=== PATIENT | female | born 1990 | race Caucasian/White ===

== ENCOUNTER 2018-11-06 11:25 | Emergency (ER) | payer SELFPAY ==
[2018-11-06 11:32] VITALS: BP 116/72; PULSE 118; TEMP 99.2; BMI 31.1
[2018-11-06] MEDS ORDERED: ACETAMINOPHEN 325 MG TABLET (FP) PO ONE (11:48)
[2018-11-06] MEDS ORDERED: ACETAMINOPHEN 325 MG TABLET (FP) ONE (11:52)
--- NOTE | 2018-11-06 11:56 | PDOC ---
History of Present Illness - General Chief Complaint: Cold Symptoms Stated Complaint: FLU SYMPTOMS Time Seen by Provider: 11/06/18 11:32 History Source: Patient Exam Limitations: No Limitations Past History - Past Medical History Allergies/Adverse Reactions: Allergies Allergy/AdvReac Type Severity Reaction Status Date / Time codeine Allergy Severe Rash Verified 11/06/18 11:38 Home Medications: Ambulatory Orders Cephalexin Monohydrate [Keflex -] 500 mg PO BID #14 capsule 11/06/18 Asthma: Yes Cancer: No Cardiac Disorders: No CVA: No COPD: No CHF: No Diabetes: No HTN: No Seizures: No Thyroid Disease: No - Reproductive History (#): 3 Para: 1 Spontaneous : 1 - Immunization History Immunization Up to Date: Yes - Suicide/Smoking/Psychosocial Hx Smoking History: Never smoked Have you smoked in the past 12 months: No Hx Alcohol Use: No Drug/Substance Use Hx: No Substance Use Type: None Hx Substance Use Treatment: No *Physical Exam - Vital Signs Last Vital Signs Temp Pulse Resp BP Pulse Ox 99.2 F 118 H 16 116/72 98 11/06/18 11:29 11/06/18 11:29 11/06/18 11:29 11/06/18 11:29 11/06/18 11:29 - Physical Exam General Appearance: No: Apparent Distress HEENT: negative: Muffled/Hoarse voice, Pharyngeal Erythema, Tonsillar Exudate, Tonsillar Erythema, Nasal Congestion, Rhinorrhea, Sinus Tenderness Respiratory/Chest: positive: Lungs Clear, Normal Breath Sounds. negative: Respiratory Distress Cardiovascular: positive: Regular Rhythm Gastrointestinal/Abdominal: positive: Normal Bowel Sounds, Soft. negative: Tender, Distended, Guarding, Rebound Musculoskeletal: negative: CVA Tenderness Integumentary: positive: Normal Color Neurologic: positive: Alert, Normal Mood/Affect Moderate Sedation - Procedure Monitoring Vital Signs: Procedure Monitoring Vital Signs Temperature 99.2 F 11/06/18 11:29 Pulse Rate 118 H 11/06/18 11:29 Respiratory Rate 16 11/06/18 11:29 Blood Pressure 116/72 11/06/18 11:29 O2 Sat by Pulse Oximetry (%) 98 11/06/18 11:29 Medical Decision Making - Medical Decision Making 28 y/o F hx of asthma presents with fever, chills, bodyaches, emesis x 4 days. Mentions one of her coworkers recently had flu around 2 weeks ago. Also mentions noting some hematuria around 4 days ago along with increased urinary frequency, urgency. Mentions having this last year as well and was found to have UTI. Denies sob, cp, abd pain, diarrhea, dysuria, vaginal bleeding, unusual vaginal discharge. Patient has not taken any antipyretics today. Likely viral syndrome/flu Plan: Flu swab, Tylenol Hematuria - consider UTI; unlikely kidney stones given no CVA tenderness, abdomen soft/NT Plan: UA, UCx 11/06/18 11:53 Flu negative; likely viral syndrome UA positive for UTI - will treat with Keflex 11/06/18 12:44 *DC/Admit/Observation/Transfer Diagnosis at time of Disposition: Viral URI UTI (urinary tract infection) Qualifiers: Urinary tract infection type: acute cystitis Hematuria presence: with hematuria Qualified Code(s): N30.01 - Acute cystitis with hematuria - Discharge Dispostion Disposition: HOME Condition at time of disposition: Stable Decision to Admit order: No - Prescriptions Prescriptions: Cephalexin Monohydrate [Keflex -] 500 mg PO BID #14 capsule - Referrals Referrals: Juan Thornton MD [Primary Care Provider] - 3 days - Patient Instructions Printed Discharge Instructions: DI for Viral Upper Respiratory Infection -- Adult, DI for Urinary Tract Infection (UTI) Additional Instructions: Thank you for choosing [facility]. It was a pleasure taking care of you. You were tested negative for flu You were found to have urine infection for which you were prescribed Keflex Follow-up with your PCP in 2-3 days. Return to the Emergency Department if your symptoms worsen or persist or have other concerning symptoms. - Post Discharge Activity
[2018-11-06 12:04] LABS: URINE APPEARANCE CLOUDY; URINE BILIRUBIN NEGATIVE (<2.0 mg/dL); URINE COLOR AMBER; URINE GLUCOSE (UA) NEGATIVE (NEGATIVE); URINE KETONE 1+ (NEGATIVE); URINE LEUK ESTERASE 3+ (NEGATIVE); URINE NITRITE NEGATIVE (NEGATIVE); URINE PROTEIN 2+ (NEGATIVE)
[2018-11-06 12:29] LABS: EPI CELLS RARE /HPF (FEW)
[2018-11-06] MEDS ORDERED: CEPHALEXIN MONOHYDRATE 500 MG CAPSULE (UD) PO ONE (12:44)
[2018-11-06] MEDS ORDERED: CEPHALEXIN MONOHYDRATE 500 MG CAPSULE (UD) ONE (12:46)
== END 2018-11-06 13:00 | disposition home or self-care (01) ==
LOC: JERFT 11:25
DX: N30.01 Acute cystitis with hematuria (principal); J06.9 Acute upper respiratory infection, unspecified; B97.89 Other viral agents as the cause of diseases classified elsewhere
CPT/HCPCS: 81003; 81015; 87086; 87186; 87804; 99281-25

== ENCOUNTER 2022-11-25 00:30 | Emergency (ER) | payer OTHER ==
[2022-11-25 00:47] VITALS: BP 103/70; PULSE 81; RESP 16; TEMP 97.8; BMI 32.3
[2022-11-25] MEDS ORDERED: NAPROXEN 500 MG TABLET PO ONE (00:50)
[2022-11-25] MEDS ORDERED: NAPROXEN 500 MG TABLET ONE (01:06)
== END 2022-11-25 01:24 | disposition home or self-care (01) ==
LOC: JER 00:30
DX: M25.561 Pain in right knee (principal)
CPT/HCPCS: 73562-TC-RT-FY; 99283-25

== ENCOUNTER 2023-02-12 22:54 | Emergency (ER) | payer OTHER ==
[2023-02-12 23:01] VITALS: BP 117/73; PULSE 80; RESP 18; TEMP 97.5; BMI 31.1
[2023-02-13] MEDS ORDERED: ONDANSETRON 4 MG/2 ML VIAL IVPUSH ONE (00:29)
[2023-02-13] MEDS ORDERED: ACETAMINOPHEN 1000 MG/100 ML BAG IVPB ONE (00:29)
[2023-02-13] MEDS ORDERED: LACTATED RINGERS SOLUTION 1000 ML INFUS.BAG IV ONE (00:33)
[2023-02-13 00:47] LABS: EPI CELLS 21 /uL (0-25.1); HCG,QUALITATIVE URINE Negative; HYALINE CASTS 0 /uL (0-3.1); PH,URINE 7.5 (5.0-8.0); URINE APPEARANCE CLEAR; URINE BACTERIA 355 /uL (0-1359); URINE BILIRUBIN NEGATIVE (NEGATIVE); URINE COLOR YELLOW; URINE GLUCOSE (UA) NEGATIVE (NEGATIVE); URINE KETONE TRACE (NEGATIVE); URINE LEUK ESTERASE NEGATIVE (NEGATIVE); URINE NITRITE NEGATIVE (NEGATIVE); URINE PROTEIN NEGATIVE (NEGATIVE); URINE RBC 111 /uL (0-23.9); URINE WBC 7 /uL (0-25.8)
[2023-02-13] MEDS ORDERED: ACETAMINOPHEN INJECTION 100 ML IVPB ONE (01:11)
[2023-02-13] MEDS ORDERED: ONDANSETRON 4 MG/2 ML VIAL ONE ×2 (01:11)
[2023-02-13 01:14] LABS: INR 0.93 (0.83-1.09); PROTHROMBIN TIME (PATIENT) 10.8 SEC (9.7-13.0)
[2023-02-13 01:17] LABS: BASO % 0.7 % (0-2.0); EOS % 3.1 % (0-4.5); HEMATOCRIT 37.5 % (32.4-45.2); HEMOGLOBIN 12.7 GM/dL (10.7-15.3); LYMPH % 29.6 % (8-40); MCH 30.2 pg (25.7-33.7); MCHC 33.9 g/dl (32.0-36.0); MONO % 4.9 % (3.8-10.2); NEUT % 61.7 % (42.8-82.8); RBC 4.22 M/mm3 (3.60-5.2); RDW 13.2 % (11.6-15.6)
[2023-02-13 01:22] LABS: ACTIVATED PTT 21.4 SECONDS (25.2-36.5)
[2023-02-13 01:23] LABS: WHITE BLOOD COUNT 12.7 K/mm3 (4.0-10.0)
[2023-02-13 01:25] LABS: CALCIUM 9.1 mg/dL (8.5-10.1)
[2023-02-13 01:26] LABS: ALBUMIN 3.5 g/dl (3.4-5.0); BLOOD UREA NITROGEN 12.6 mg/dL (7-18)
[2023-02-13 01:30] LABS: BILIRUBIN,TOTAL 0.6 mg/dL (0.2-1); TOT PROT 7.7 g/dl (6.4-8.2)
[2023-02-13] MEDS ORDERED: KETOROLAC TROMETHAMINE 30 MG/1 ML VIAL IVPUSH ONE (03:22)
[2023-02-13] MEDS ORDERED: KETOROLAC TROMETHAMINE 30 MG/1 ML VIAL ONE (03:24)
[2023-02-13] MEDS ORDERED: CEPHALEXIN MONOHYDRATE 500 MG CAPSULE (UD) PO ONE (03:44)
[2023-02-13] MEDS ORDERED: POLYETHYLENE GLYCOL (HEALTHYLAX) 3350 17 GM PACKET PO SCH (03:45)
[2023-02-13] MEDS ORDERED: POLYETHYLENE GLYCOL (HEALTHYLAX) 3350 17 GM PACKET ONE (04:04)
[2023-02-13] MEDS ORDERED: CEPHALEXIN MONOHYDRATE 500 MG CAPSULE (UD) ONE (04:05)
[2023-02-13 06:01] LABS: MEAN PLT VOLUME 10.9 fl (7.5-11.1); PLATELET COUNT 173 10^3/uL (134-434)
== END 2023-02-13 04:13 | disposition home or self-care (01) ==
LOC: JER 22:54
PROC: 3E033NZ Introduction of Analgesics, Hypnotics, Sedatives into Peripheral Vein, Percutaneous Approach (ICD-10-PCS; principal; 2023-02-13)
PROC: 3E033GC Introduction of Other Therapeutic Substance into Peripheral Vein, Percutaneous Approach (ICD-10-PCS; 2023-02-13)
PROC: 3E0333Z Introduction of Anti-inflammatory into Peripheral Vein, Percutaneous Approach (ICD-10-PCS; 2023-02-13)
DX: R10.9 Unspecified abdominal pain (principal); R51.9 Headache, unspecified; R11.0 Nausea; Z20.822 Contact with and (suspected) exposure to COVID-19
CPT/HCPCS: 0241U-QW; 36415; 74177-TC; 80053; 81003; 83690; 84703; 85025; 85610; 85730; 87086; 99285-25; Q9967

== ENCOUNTER 2023-06-20 15:16 | Emergency (ER) | payer OTHER ==
[2023-06-20 15:41] VITALS: BMI 32.3
[2023-06-20 18:16] VITALS: BP 104/64; PULSE 80; RESP 22; TEMP 98.9
== END 2023-06-20 20:06 | disposition home or self-care (01) ==
LOC: JERFT 15:16
DX: O98.512 Other viral diseases complicating pregnancy, second trimester (principal); U07.1 COVID-19; O99.512 Diseases of the respiratory system complicating pregnancy, second trimester; J00 Acute nasopharyngitis [common cold]; Z3A.20 20 weeks gestation of pregnancy
CPT/HCPCS: 0241U-QW; 87070; 87651; 99283-25

== ENCOUNTER 2023-08-29 10:26 | Emergency (ER) | payer OTHER ==
[2023-08-29 10:29] VITALS: BMI 34.0
[2023-08-29] MEDS ORDERED: SODIUM CHLORIDE 0.9% 1000 ML INFUS.BAG IV ONE ×2 (11:19→14:07)
[2023-08-29 11:41] LABS: BASO % 0.7 % (0-2.0); EOS % 3.5 % (0-4.5); HEMATOCRIT 32.4 % (32.4-45.2); HEMOGLOBIN 10.9 GM/dL (10.7-15.3); LYMPH % 17.6 % (8-40); MCH 30.1 pg (25.7-33.7); MCHC 33.7 g/dl (32.0-36.0); MEAN CELL VOLUME 89.4 fl (80-96); MEAN PLT VOLUME 8.5 fl (7.5-11.1); MONO % 4.6 % (3.8-10.2); NEUT % 73.6 % (42.8-82.8); PLATELET COUNT 265 10^3/uL (134-434); RBC 3.63 M/mm3 (3.60-5.2); WHITE BLOOD COUNT 9.3 K/mm3 (4.0-10.0)
[2023-08-29 11:52] LABS: EPI CELLS >36 /uL (0-25.1); HYALINE CASTS 1 /uL (0-3.1); URINE APPEARANCE CLEAR; URINE BACTERIA 2331 /uL (0-1359); URINE BILIRUBIN NEGATIVE (NEGATIVE); URINE COLOR YELLOW; URINE GLUCOSE (UA) NEGATIVE (NEGATIVE); URINE KETONE NEGATIVE (NEGATIVE); URINE LEUK ESTERASE 2+ (NEGATIVE); URINE NITRITE NEGATIVE (NEGATIVE); URINE PROTEIN TRACE (NEGATIVE); URINE RBC 59 /uL (0-23.9); URINE WBC 72 /uL (0-25.8)
[2023-08-29 11:53] LABS: POTASSIUM 4.2 mmol/L (3.5-5.1)
[2023-08-29 11:55] LABS: ALBUMIN 2.6 g/dl (3.4-5.0); BLOOD UREA NITROGEN 11.6 mg/dL (7-18); CALCIUM 8.8 mg/dL (8.5-10.1)
[2023-08-29 11:58] LABS: CREATININE 0.7 mg/dL (0.55-1.3)
[2023-08-29 12:00] LABS: BILIRUBIN,TOTAL 0.4 mg/dL (0.2-1); TOT PROT 6.7 g/dl (6.4-8.2)
[2023-08-29 13:53] VITALS: TEMP 98.1
[2023-08-29] MEDS ORDERED: SODIUM CHLORIDE 1,000 ML IV ONE (14:06)
[2023-08-29 14:32] VITALS: BP 100/71; PULSE 80; RESP 16
== END 2023-08-29 16:19 | disposition home or self-care (01) ==
LOC: JER 10:26
PROC: 3E0337Z Introduction of Electrolytic and Water Balance Substance into Peripheral Vein, Percutaneous Approach (ICD-10-PCS; principal; 2023-08-29)
DX: O26.893 Other specified pregnancy related conditions, third trimester (principal); R42 Dizziness and giddiness; O99.283 Endocrine, nutritional and metabolic diseases complicating pregnancy, third trimester; E86.0 Dehydration; O98.513 Other viral diseases complicating pregnancy, third trimester; U07.1 COVID-19; O23.13 Infections of bladder in pregnancy, third trimester; N30.00 Acute cystitis without hematuria; Z3A.32 32 weeks gestation of pregnancy
CPT/HCPCS: 0241U-QW; 36415; 80053; 81003; 82962; 83605; 85025; 86850; 86900; 86901; 87086; 93005; 93010; 99284-25

== ENCOUNTER 2023-10-30 11:52 | Inpatient (IN) | payer OTHER ==
[2023-10-30] MEDS ORDERED: CITRIC ACID/SODIUM CITRATE 30 ML UNIT-DOSE CUP PO ONE (12:30)
[2023-10-30] MEDS ORDERED: ELECTROLYTE-148 SOLN 500 ML IV SCH ×2 (12:30→13:00)
[2023-10-30] MEDS ORDERED: OXYTOCIN 10 UNITS/ML VIAL ONE (12:45)
[2023-10-30] MEDS ORDERED: PHENYLEPHRINE HCL 10 MG/1 ML SINGLE DOSE VIAL ONE (12:45)
[2023-10-30] MEDS ORDERED: KETOROLAC TROMETHAMINE 30 MG/1 ML VIAL ONE (12:45)
[2023-10-30] MEDS ORDERED: ONDANSETRON 4 MG/2 ML VIAL ONE (12:45)
[2023-10-30] MEDS ORDERED: morphine SULFATE/PF 1 MG/2 ML (2cc Syringe - QUVA) ONE (12:46)
[2023-10-30] MEDS ORDERED: FENTANYL CITRATE/PF 50 MCG/ML VIAL ONE (12:46)
[2023-10-30] MEDS ORDERED: ceFAZolin SODIUM 1 GM VIAL ONE (12:47)
[2023-10-30 13:45] LABS: CORD BASE EXCESS -3.1 mmol/L (0-2); CORD PCO2 44.6 mmHg (30-78); CORD pH 7.33 (7.14-7.44)
[2023-10-30 13:56] LABS: BASO % 0.6 % (0-2.0); EOS % 3.2 % (0-4.5); HEMATOCRIT 30.6 % (32.4-45.2); HEMOGLOBIN 9.9 GM/dL (10.7-15.3); MCH 27.5 pg (25.7-33.7); MCHC 32.2 g/dl (32.0-36.0); MEAN CELL VOLUME 85.5 fl (80-96); MEAN PLT VOLUME 8.9 fl (7.5-11.1); MONO % 5.6 % (3.8-10.2); NEUT % 72.6 % (42.8-82.8); PLATELET COUNT 234 10^3/uL (134-434); RBC 3.58 M/mm3 (3.60-5.2); RDW 15.9 % (11.6-15.6); WHITE BLOOD COUNT 9.6 K/mm3 (4.0-10.0)
[2023-10-30] MEDS ORDERED: ONDANSETRON 4 MG/2 ML VIAL IVPB PRN (14:02)
[2023-10-30 14:03] LABS: CORD HCO3 15.4 mmHg (20-29); CORD PCO2 36.6 mmHg (30-78); CORD pH 7.243 (7.14-7.44)
[2023-10-30] MEDS ORDERED: traMADol HCL 50 MG TABLET PO PRN (14:13)
[2023-10-30 14:50] VITALS: BMI 35.6
[2023-10-30 15:01] LABS: POTASSIUM 4.3 mmol/L (3.5-5.1)
[2023-10-30 15:01] LABS: ACTIVATED PTT 27.6 SECONDS (25.2-36.5); INR 0.99 (0.83-1.09); PROTHROMBIN TIME (PATIENT) 11.5 SEC (9.7-13.0)
[2023-10-30 15:02] LABS: BLOOD UREA NITROGEN 14.2 mg/dL (7-18); CALCIUM 9.2 mg/dL (8.5-10.1)
[2023-10-30 15:06] LABS: CREATININE 0.7 mg/dL (0.55-1.3)
[2023-10-30] MEDS ORDERED: IBUPROFEN 800 MG/8 ML IJ IVPB PRN (16:06)
[2023-10-30] MEDS ORDERED: ENOXAPARIN NA (PORCINE) 40 MG/0.4 ML DISP.SYRIN SQ ONE (16:08)
[2023-10-30] MEDS ORDERED: OXYTOCIN 20 UNITS in 0.9% NS 20 UNIT/1,000 ML INFUS.BAG IV ONE (16:12)
[2023-10-30] MEDS: OXYTOCIN 20 UNITS in 0.9% NS 20 UNIT/1,000 ML INFUS.BAG IV SCH (16:15)
[2023-10-30] MEDS: IBUPROFEN 800 MG/8 ML IJ IVPB SCH (17:16)
[2023-10-30] MEDS: CEFAZOLIN 3 GM in DEXTROSE 5%-WATER - 100 ML IVPB SCH (20:30)
[2023-10-30] MEDS: ACETAMINOPHEN 1000 MG/100 ML BAG IVPB SCH ×2 (20:37→21:49)
[2023-10-30] MEDS: SENNOSIDES/DOCUSATE COMBO (SENNA PLUS) TABLET (UD) PO SCH (21:54)
[2023-10-30] MEDS ORDERED: METHYLERGONOVINE MALEATE 0.2 MG/1 ML AMP IM PRN (22:33)
[2023-10-31] MEDS: IBUPROFEN 800 MG/8 ML IJ IVPB SCH ×3 (00:43→14:34)
[2023-10-31] MEDS ORDERED: CEFAZOLIN SODIUM 2 GM VIAL ONE (05:58)
[2023-10-31] MEDS ORDERED: ceFAZolin SODIUM 1 GM VIAL ONE (05:58)
[2023-10-31] MEDS: CEFAZOLIN 3 GM in DEXTROSE 5%-WATER - 100 ML IVPB SCH ×2 (06:07→12:49)
[2023-10-31 06:27] VITALS: RESP 18
[2023-10-31] MEDS: OXYTOCIN 20 UNITS in 0.9% NS 20 UNIT/1,000 ML INFUS.BAG IV SCH (06:30)
[2023-10-31] MEDS: ACETAMINOPHEN 1000 MG/100 ML BAG IVPB SCH ×2 (06:51→13:40)
[2023-10-31 09:58] LABS: BASO % 0.2 % (0-2.0); EOS % 1.9 % (0-4.5); HEMATOCRIT 28.7 % (32.4-45.2); HEMOGLOBIN 9.3 GM/dL (10.7-15.3); LYMPH % 14.1 % (8-40); MCH 27.6 pg (25.7-33.7); MCHC 32.3 g/dl (32.0-36.0); MEAN CELL VOLUME 85.5 fl (80-96); MEAN PLT VOLUME 8.4 fl (7.5-11.1); MONO % 4.1 % (3.8-10.2); NEUT % 79.7 % (42.8-82.8); PLATELET COUNT 225 10^3/uL (134-434); RBC 3.35 M/mm3 (3.60-5.2); RDW 16.1 % (11.6-15.6); WHITE BLOOD COUNT 10.4 K/mm3 (4.0-10.0)
[2023-10-31] MEDS ORDERED: BISACODYL 10 MG SUPP.RECT RC PRN (14:02)
[2023-10-31] MEDS: SIMETHICONE 80 MG TAB.CHEW (FP) PO PRN (19:23)
[2023-10-31] MEDS ORDERED: ACETAMINOPHEN 500 MG TABLET (FP) PO PRN (22:00)
[2023-10-31] MEDS: SENNOSIDES/DOCUSATE COMBO (SENNA PLUS) TABLET (UD) PO SCH (22:24)
[2023-11-01] MEDS: SIMETHICONE 80 MG TAB.CHEW (FP) PO PRN ×3 (00:21→21:06)
[2023-11-01] MEDS: IBUPROFEN 600 MG TABLET (FP) PO PRN ×3 (00:21→21:06)
[2023-11-01 13:40] VITALS: PULSE 80
[2023-11-01] MEDS: SENNOSIDES/DOCUSATE COMBO (SENNA PLUS) TABLET (UD) PO SCH (21:06)
[2023-11-02] MEDS: IBUPROFEN 600 MG TABLET (FP) PO PRN (10:50)
[2023-11-02] MEDS: SIMETHICONE 80 MG TAB.CHEW (FP) PO PRN (10:50)
[2023-11-02 11:24] VITALS: BP 125/80; TEMP 98
== END 2023-11-02 12:50 | disposition home or self-care (01) | DRG 540 ==
LOC: JDEL 11:52 → JLDR 12:30 → J3W 16:00
PROVIDERS: ADMIT Obstetrics & Gynecology; ATTEND Obstetrics & Gynecology
PROC: 10D00Z1 Extraction of Products of Conception, Low, Open Approach (ICD-10-PCS; principal; 2023-10-30)
DX: O48.0 Post-term pregnancy (principal); O76 Abnormality in fetal heart rate and rhythm complicating labor and delivery; O34.219 Maternal care for unspecified type scar from previous cesarean delivery; Z3A.40 40 weeks gestation of pregnancy; Z37.0 Single live birth
CPT/HCPCS: 36415; 36600; 59025; 80048; 82803; 82962; 85025; 85610; 85730; 86780; 86850; 86900; 86901; 88307-TC